=== PATIENT | female | born 1995 | race Native Hawaiian/Other Pacific Islander ===

== ENCOUNTER 2018-11-07 10:37 | Emergency (ER) | payer MEDICAID, OTHER ==
[~2018-11-07] VITALS: Ht 177.8 cm; Wt 56.7 kg
[2018-11-07 11:17] VITALS: BP 120/77
--- NOTE | 2018-11-07 12:25 | NUR ---
Ute Martines in to see patient
[2018-11-07] MEDS ORDERED: IBUP-1985 PO (12:30)
== END 2018-11-07 13:06 | disposition home or self-care (01) ==
LOC: ER 10:37
DX: M23.92 Unspecified internal derangement of left knee (principal); G89.29 Other chronic pain; Z79.899 Other long term (current) drug therapy
CPT/HCPCS: 29505; 73564; 99284

== ENCOUNTER 2018-11-23 09:04 | Outpatient (CLI) | payer MEDICAID, OTHER ==
[2018-11-23 08:59] VITALS: BP 129/86
[~2018-11-23 09:04] MED LIST: IBUP-1985 PO
== END 2018-11-23 09:35 | disposition home or self-care (01) ==
LOC: ORTHO 09:04
PROVIDERS: ATTEND Nurse Practitioner Family
DX: S83.422A Sprain of lateral collateral ligament of left knee, initial encounter (principal); S83.412A Sprain of medial collateral ligament of left knee, initial encounter; M25.462 Effusion, left knee; X58.XXXA Exposure to other specified factors, initial encounter; Y92.213 High school as the place of occurrence of the external cause; Y93.67 Activity, basketball; Y99.8 Other external cause status
CPT/HCPCS: 99213

== ENCOUNTER 2019-02-06 00:06 | Emergency (ER) | payer MEDICAID, OTHER ==
[~2019-02-06] VITALS: Ht 167.6 cm; Wt 59.6 kg
[2019-02-06] MEDS ORDERED: cyclobenzaprine 10mg tablet PO ONE (02:15)
[2019-02-06] MEDS ORDERED: acetaminophen w/codeine (30MG) #3 tablet PO ONE (02:15)
[2019-02-06] MEDS ORDERED: CYCL-1 PO (02:16)
[2019-02-06] MEDS ORDERED: ACET-3067 PO (02:16)
[2019-02-06 02:32] VITALS: BP 112/79
== END 2019-02-06 02:33 | disposition home or self-care (01) ==
LOC: ER 00:06
DX: S13.4XXA Sprain of ligaments of cervical spine, initial encounter (principal); S09.90XA Unspecified injury of head, initial encounter; G89.29 Other chronic pain; V47.6XXA Car passenger injured in collision with fixed or stationary object in traffic accident, initial encounter; Y93.89 Activity, other specified; Y92.488 Other paved roadways as the place of occurrence of the external cause; Y99.8 Other external cause status
CPT/HCPCS: 99283

== ENCOUNTER 2019-10-05 23:43 | Emergency (ER) | payer MEDICAID, OTHER ==
[~2019-10-05] VITALS: Ht 170.2 cm; Wt 56.8 kg
[~2019-10-05 23:43] MED LIST changes: +CYCL-1 PO
--- NOTE | 2019-10-06 00:35 | NUR ---
Patient sitting up on bed, using cell phone laughing with friend. Patient waited until she was done sending text before answering nursing questions. Patient states that she "popped her knee" at aproximately 0200 10/05 and has not been able to bare full weight since that time
[2019-10-06 00:58] VITALS: BP 126/71
== END 2019-10-06 01:00 | disposition home or self-care (01) ==
LOC: ER 23:44
DX: M25.562 Pain in left knee (principal); R51 Headache; G89.29 Other chronic pain; Z60.2 Problems related to living alone; Z79.899 Other long term (current) drug therapy; X50.1XXA Overexertion from prolonged static or awkward postures, initial encounter; Y93.89 Activity, other specified; Y92.89 Other specified places as the place of occurrence of the external cause; Y99.8 Other external cause status
CPT/HCPCS: 73564; 99283

== ENCOUNTER 2020-09-15 10:58 | Emergency (ER) | payer BC, OTHER ==
[~2020-09-15] VITALS: Ht 170.2 cm; Wt 55.0 kg
[2020-09-15] MEDS ORDERED: bacitracin 15gm ointment TP ONE (11:50)
== END 2020-09-15 13:42 | disposition home or self-care (01) ==
LOC: ER 10:59
DX: S09.90XA Unspecified injury of head, initial encounter (principal); G89.29 Other chronic pain; Z88.8 Allergy status to other drugs, medicaments and biological substances; W18.39XA Other fall on same level, initial encounter; Y93.89 Activity, other specified; Y92.89 Other specified places as the place of occurrence of the external cause; Y99.8 Other external cause status
CPT/HCPCS: 70450; 99284